=== PATIENT | male | born 1995 | race Caucasian/White ===

== ENCOUNTER 2016-07-25 19:34 | Inpatient (IN) | payer OTHER ==
[2016-07-25 20:44] VITALS: BMI 22.9
--- NOTE | 2016-07-25 20:58 | HP ---
COWS - Scale Resting Pulse: 4= [place] > 121 Sweatin= Chills/Flushing Restless Observation: 3= Extraneous Movement Pupil Size: 0= Normal to Room Light Bone or Joint Aches: 2= Severe Diffuse Aches Runny Nose/ Eye Tearin= Runny Nose/Eyes GI Upset > 30mins: 2= Nausea/Diarrhea Tremor Observation: 2= Slight Tremor Visible Yawning Observation: 0= None Anxiety or Irritability: 2=Irritable/Anxious Goose Flesh Skin: 0=Smooth Skin COWS Score: 18 CIWA Score - CIWA Score Nausea/Vomitin-Mild Nausea/No Vomiting Muscle Tremors: 4-Moderate,w/Arms Extend Anxiety: 4-Mod. Anxious/Guarded Agitation: 4-Moderately Restless Paroxysmal Sweats: 1-Minimal Palms Moist Orientation: 2-Disoriented Date<2 days Tacttile Disturbances: 0-None Auditory Disturbances: 0-None Visual Disturbances: 0-None Headache: 1-Very Mild CIWA-Ar Total Score: 17 Admission ROS S - HPI Chief Complaint: withdrawal sx Allergies/Adverse Reactions: Allergies Allergy/AdvReac Type Severity Reaction Status Date / Time avocado Allergy Severe Difficulty Verified 07/25/16 20:35 Breathing azithromycin [From Zithromax] Allergy Severe Hives Verified 07/25/16 20:35 [email or web address] [From Omnicef] Allergy Severe Hives Verified 07/25/16 20:35 latex Allergy Severe Hives Verified 07/25/16 20:35 peanut Allergy Severe Difficulty Verified 07/25/16 20:35 Breathing Penicillins Allergy Severe Difficulty Verified 07/25/16 20:35 Breathing tree nut Allergy Severe Difficulty Verified 07/25/16 20:35 Breathing banana Allergy Difficulty Verified 07/25/16 20:35 Breathing History of Present Illness: 21 years old male with long history of opium xanax nicotine dependence has asthma and anxiety is admitted to detox Exam Limitations: No Limitations - Ebola screening Have you traveled outside of the country in the last 21 days: No Have you had contact with anyone from an Ebola affected area: No Have you been sick,other than usual withdrawal symptoms: No Do you have a fever: No - Review of Systems Constitutional: Chills, Loss of Appetite, Changes in sleep, Unintentional Wgt. Loss, Unexplained wgt Loss EENT: reports: Nose Congestion Respiratory: reports: SOB with Exertion Cardiac: reports: No Symptoms Reported GI: reports: Nausea, Poor Appetite, Poor Fluid Intake, Indigestion, Abdominal cramping : reports: No Symptoms Reported Musculoskeletal: reports: Back Pain, Joint Pain, Muscle Pain, Neck Pain Integumentary: reports: Change in Color (left inner elbow) Neuro: reports: Tremors Endocrine: reports: No Symptoms Reported Hematology: reports: No Symptoms Reported Psychiatric: reports: Judgement Intact, Anxious, Depressed Other Systems: Reviewed and Negative Patient History - Patient Medical History Hx Anemia: No Hx Asthma: Yes Hx Chronic Obstructive Pulmonary Disease (COPD): No Hx Cancer: No Hx Cardiac Disorders: No Hx Congestive Heart Failure: No Hx Hypertension: No Hx Hypercholesterolemia: No Hx Pacemaker: No HX Cerebrovascular Accident: No Hx Seizures: No Hx Dementia: No Hx Diabetes: No Hx Gastrointestinal Disorders: Yes Hx Liver Disease: No Hx Genitourinary Disorders: No Hx Sexually Transmitted Disorders: No Hx Renal Disease (ESRD): No Hx Thyroid Disease: No Hx Human Immunodeficiency Virus (HIV): No Hx Hepatitis C: No Hx Depression: Yes Hx Suicide Attempt: No Hx Bipolar Disorder: No Hx Schizophrenia: No - Patient Surgical History Past Surgical History: Yes Hx Neurologic Surgery: No Hx Cataract Extraction: No Hx Cardiac Surgery: No Hx Lung Surgery: No Hx Breast Surgery: No Hx Breast Biopsy: No Hx Abdominal Surgery: No Hx Appendectomy: No Hx Cholecystectomy: No Hx Genitourinary Surgery: No Hx Orthopedic Surgery: No Other Surgical History: ear tubes removed Anesthesia Reaction: No - PPD History Previous Implant?: Yes Documented Results: Negative w/o proof Implanted On [facility] Admission?: No PPD to be Administered?: Yes - Smoking Cessation Smoking history: Current every day smoker Have you smoked in the past 12 months: Yes Aproximately how many cigarettes per day: 30 Cigars Per Day: 0 Hx Chewing Tobacco Use: No Initiated information on smoking cessation: Yes 'Breaking Loose' booklet given: 07/25/16 - Substance & Tx. History Hx Alcohol Use: No Hx Substance Use: Yes Substance Use Type: Heroin, Opiates, Tranquilizers Hx Substance Use Treatment: No - Substances Abused Alprazolam (Xanax) Route: Oral Frequency: Daily Amount used: 30 mg Age of first use: 14 Date of Last Use: 07/25/16 Heroin Route: Injection Frequency: Daily Amount used: 40 bag Age of first use: 20 Date of Last Use: 07/25/16 xanax Route: Oral Frequency: Daily Amount used: 15-20 mg Age of first use: 14 Date of Last Use: 07/25/16 Family Disease History - Family Disease History Family Disease History: Heart Disease: Grandparent, Other: Mother (lupus) Admission Physical Exam [facility] - Vital Signs Vital Signs: Vital Signs - 24 hr 07/25/16 20:41 Temperature 98.1 F Pulse Rate 122 H Respiratory 16 Rate Blood Pressure 150/102 - Physical General Appearance: Yes: Appropriately Dressed, Moderate Distress, Thin, Tremorous, Irritable, Sweating, Anxious HEENTM: Yes: Hearing grossly Normal, Normal ENT Inspection, Normocephalic, Normal Voice Respiratory: Yes: Chest Non-Tender, No Respiratory Distress, No Accessory Muscle Use, Wheezing, Expiration Neck: Yes: Supple, Trachea in good position Breast: Yes: Breasts Symetrical Cardiology: Yes: Regular Rhythm, S1, S2, Tachycardia Abdominal: Yes: Non Tender, Soft Genitourinary: Yes: Within Normal Limits Back: Yes: Normal Inspection Musculoskeletal: Yes: full range of Motion, Gait Steady, Back pain, Muscle Pain Extremities: Yes: Normal Range of Motion, Non-Tender, Tremors Neurological: Yes: Alert, Motor Strength 5/5, Normal Response, Depressed Affect Integumentary: Yes: Warm, Track Velazquez Lymphatic: Yes: Within Normal Limits - Diagnostic (1) Opioid dependence with withdrawal Current Visit: Yes Status: Acute (2) Sedative, hypnotic or anxiolytic dependence with withdrawal, uncomplicated Current Visit: Yes Status: Acute (3) Asthma Current Visit: Yes Status: Chronic Qualifiers: Asthma severity: mild persistent Asthma complication type: with status asthmaticus Qualified Code(s): J45.32 - Mild persistent asthma with status asthmaticus (4) Nicotine dependence Current Visit: Yes Status: Acute Qualifiers: Nicotine product type: cigarettes Substance use status: in withdrawal Qualified Code(s): F17.213 - Nicotine dependence, cigarettes, with withdrawal (5) Nasal congestion Current Visit: Yes Status: Chronic (6) Skin abrasion Current Visit: Yes Status: Chronic (7) Weight loss Current Visit: Yes Status: Acute Cleared for Admission [facility] - Detox or Rehab [facility] Level of Care: Medically Managed Detox Regimen/Protocol: Methadone/Valium B[facility] Breath Alcohol Content Breath Alcohol Content: 0 Urine Drug Screen - Results Drug Screen Negative: No Urine Drug Screen Results: OPI-Opiates, AMP-Amphetamines, BZO-Benzodiazepines, OXY-Oxycodone
[2016-07-25] MEDS ORDERED: LOPERAMIDE HCL 2 MG CAPSULE PO PRN (21:08)
[2016-07-25] MEDS ORDERED: diazePAM 5 MG TABLET PO ONE (21:08)
[2016-07-25] MEDS ORDERED: MAGNESIUM CITRATE 300 ML BOTTLE PO PRN (21:08)
[2016-07-25] MEDS ORDERED: diazePAM 5 MG TABLET PO PRN (21:08)
[2016-07-25] MEDS ORDERED: METHADONE HCL 10 MG TABLET (FOR DETOX USE ONLY) PO ONE ×2 (21:08→23:00)
[2016-07-25] MEDS ORDERED: MAGNESIUM HYDROX 2400MG/30ML ORAL SUSPENSION 30 ML CUP PO PRN (21:08)
[2016-07-25] MEDS ORDERED: MAG HYDROX/AL HYDROX/SIMETH 30 ML UNIT-DOSE CUP PO PRN (21:08)
[2016-07-25] MEDS ORDERED: MENTHOL/PHENOL 1 EACH UD MM PRN (21:08)
[2016-07-25] MEDS ORDERED: ACETAMINOPHEN 325 MG TABLET (FP) PO PRN (21:08)
[2016-07-25] MEDS ORDERED: BACITRACIN 0.9 GM PACKET TP ONE (21:11)
[2016-07-25] MEDS: RANITIDINE HCL 150 MG TABLET (FP) PO SCH (22:09)
[2016-07-25] MEDS: cloNIDine HCL 0.1 MG TABLET PO PRN (22:10)
[2016-07-25] MEDS: THIAMINE HCL 100 MG TABLET (FP) PO SCH (22:10)
[2016-07-25] MEDS: CYCLOBENZAPRINE HCL 10 MG TABLET (FP) PO PRN (22:10)
[2016-07-25] MEDS: FLUTICASONE PROP 0.05% 16 GM NASAL SPRAY NS SCH (22:13)
[2016-07-25] MEDS: NICOTINE POLACRILEX 4 MG GUM BC PRN (22:18)
[2016-07-25] MEDS: diazePAM 5 MG TABLET PO SCH (22:19)
[2016-07-26] MEDS: ALBUTEROL SO4 2.5/IPRATROPIUM 0.5 INH SOL 3 ML VIAL.NEB. NEB PRN (00:01)
[2016-07-26] MEDS: P-EPHED 60MG/TRIPROLIDI 2.5MG TABLET PO PRN (00:08)
[2016-07-26] MEDS: diazePAM 5 MG TABLET PO SCH (05:49)
--- NOTE | 2016-07-26 09:46 | EKG ---
Test Reason : Blood Pressure : / mmHG Vent. Rate : 105 BPM Atrial Rate : 105 BPM P-R Int : 134 ms QRS Dur : 094 ms QT Int : 352 ms P-R-T Axes : 075 052 035 degrees QTc Int : 465 ms SINUS TACHYCARDIA NO PREVIOUS ECGS AVAILABLE Confirmed by HECTOR CURRAN MD ([id number]) on 07/26/2016 9:45:48 AM Referred By: Confirmed By:HECTOR CURRAN MD
[2016-07-26] MEDS ORDERED: METHADONE HCL 10 MG TABLET (FOR DETOX USE ONLY) PO SCH (10:00)
[2016-07-26 10:02] LABS: MCH 29.1 pg (25.7-33.7); MCHC 33.4 g/dl (32.0-35.9); MEAN CELL VOLUME 87.1 fl (80-96); MEAN PLT VOLUME 9.8 fl (7.5-11.1); PLATELET COUNT 188 K/MM3 (134-434); RDW 13.6 % (11.9-15.9); WHITE BLOOD COUNT 7.8 K/mm3 (4.0-10.0)
[2016-07-26] MEDS: cloNIDine HCL 0.1 MG TABLET PO PRN ×2 (10:14→22:27)
[2016-07-26] MEDS: CYCLOBENZAPRINE HCL 10 MG TABLET (FP) PO PRN ×2 (10:14→22:27)
[2016-07-26] MEDS: PRENATAL VITAMINS W/ FOLIC ACID TABLET (FP) PO SCH (10:14)
[2016-07-26] MEDS: RANITIDINE HCL 150 MG TABLET (FP) PO SCH ×2 (10:14→22:27)
[2016-07-26] MEDS: FLUTICASONE PROP 0.05% 16 GM NASAL SPRAY NS SCH (10:15)
[2016-07-26] MEDS: NICOTINE 21 MG/24 HOURS TOPICAL PATCH TD SCH (10:15)
--- NOTE | 2016-07-26 10:49 | PN ---
[facility] CIWA - CIWA Score Nausea/Vomitin-No Nausea/No Vomiting Muscle Tremors: 4-Moderate,w/Arms Extend Anxiety: 3 Agitation: 4-Moderately Restless Paroxysmal Sweats: 3 Orientation: 0-Oriented Tacttile Disturbances: 0-None Auditory Disturbances: 0-None Visual Disturbances: 0-None Headache: 1-Very Mild CIWA-Ar Total Score: 15 BHS COWS - Scale Resting Pulse: 0= DC 80 or Below Sweatin=Flushed/Facial Moisture Restless Observation: 1= Difficult to Sit Still Pupil Size: 0= Normal to Room Light Bone or Joint Aches: 2= Severe Diffuse Aches Runny Nose/ Eye Tearin= Runny Nose/Eyes GI Upset > 30mins: 2= Nausea/Diarrhea Tremor Observation of Outstretched Hands: 2= Slight Tremor Visible Yawning Observation: 2= >3x During Session Anxiety or Irritability: 2=Irritable/Anxious Goose Flesh Skin: 0=Smooth Skin COWS Score: 15 S Progress Note (SOAP) Subjective: irritable agitation anxiety sweats interrupted sleep I need gingerale for my upset stomach Objective: 07/26/16 10:53 Vital Signs Temperature 96.8 F L 07/26/16 07:27 Pulse Rate 67 07/26/16 07:27 Respiratory Rate 16 07/26/16 07:27 Blood Pressure 96/55 07/26/16 07:27 O2 Sat by Pulse Oximetry (%) Laboratory Tests 07/26/16 07/26/16 07:00 07:00 WBC 7.8 RBC 5.55 Hgb 16.1 Hct 48.3 MCV 87.1 MCHC 33.4 RDW 13.6 Plt Count 188 MPV 9.8 Sodium 140 Potassium 3.7 Chloride 104 labs pending awake/alert ambulating no acute distress Assessment: 07/26/16 10:53 withdrawal sx Plan: continue detox increase fluids labs pending dietary consultation ordered gingerale with meals
[2016-07-26 10:54] LABS: ALBUMIN 4.4 g/dl (3.4-5.0); ALK PHOS 54 U/L (45-117); ANION GAP 11 (8-16); BILIRUBIN,TOTAL 0.6 mg/dL (0.2-1.0); CO2 25 mmol/L (21-32); CREATININE 1.4 mg/dL (0.7-1.3); GLUCOSE,RANDOM 88 mg/dL (74-106); SGOT/AST 12 U/L (15-37); SGPT/ALT 24 U/L (12-78); TOT PROT 7.1 g/dl (6.4-8.2)
[2016-07-26] MEDS ORDERED: ALBUTEROL SO4 6.7 GM HFA INHALER IH SCH (12:30)
[2016-07-26 12:43] LABS: HIV 1 & 2 AB NEGATIVE; HIV 1 AGp24 NEGATIVE
--- NOTE | 2016-07-26 12:50 | CONSULT ---
[facility] Psychiatric Consult - Data Date of interview: 07/26/16 Admission source: [facility] Identifying data: First admission to [facility] for this 21 y/o male seeking detox treatment for xanax and heroin dependence.Patient is single without children,domiciled and currently employed. Substance Abuse History: - Smoking Cessation. Smoking history: Current every day smoker. Have you smoked in the past 12 months: Yes. Aproximately how many cigarettes per day: 30. Cigars Per Day: 0. Hx Chewing Tobacco Use: No. Initiated information on smoking cessation: Yes. 'Breaking Loose' booklet given : 07/25/16. - Substance & Tx. History. Hx Alcohol Use: No. Hx Substance Use: Yes. Substance Use Type: Heroin, Opiates, Tranquilizers. Hx Substance Use Treatment: No. - Substances Abused. Alprazolam (Xanax). Route: Oral. Frequency: Daily. Amount used: 30 mg. Age of first use: 14. Date of Last Use : 07/25/16. Heroin. Route: Injection. Frequency: Daily. Amount used: 40 bag. Age of first use: 20. Date of Last Use: 07/25/16. xanax. Route: Oral. Frequency: Daily. Amount used: 15-20 mg. Age of first use: 14. Date of Last Use: 07/25/16. Confirmed by patient. Medical History: Patient endorses good general health.History of bronchial asthma. Psychiatric History: Patient denies. Physical/Sexual Abuse/Trauma History: Patient denies. Additional Comment: Urine Drug Screen Results: OPI-Opiates, AMP-Amphetamines, BZO-Benzodiazepines, OXY-Oxycodone.Noted. Mental Status Exam - Mental Status Exam Alert and Oriented to: Time, Place, Person Cognitive Function: Good Patient Appearance: Well Groomed Mood: Hopeful, Euthymic Affect: Appropriate, Normal Range Patient Behavior: Appropriate, Cooperative Speech Pattern: Clear Voice Loudness: Normal Thought Process: Intact, Goal Oriented Thought Disorder: Not Present Hallucinations: Denies Suicidal Ideation: Denies Homicidal Ideation: Denies Insight/Judgement: Poor Sleep: Well Appetite: Good Muscle strength/Tone: Normal Gait/Station: Normal Psychiatric Findings - Problem List ([place] 1, 2,3) (1) Opioid dependence with withdrawal Current Visit: Yes Status: Acute (2) Sedative, hypnotic or anxiolytic dependence with withdrawal, uncomplicated Current Visit: Yes Status: Acute (3) Amphetamine abuse Current Visit: Yes Status: Acute (4) Nicotine dependence Current Visit: Yes Status: Acute Qualifiers: Nicotine product type: cigarettes Substance use status: in withdrawal Qualified Code(s): F17.213 - Nicotine dependence, cigarettes, with withdrawal (5) Asthma Current Visit: Yes Status: Chronic Qualifiers: Asthma severity: mild persistent Asthma complication type: with status asthmaticus Qualified Code(s): J45.32 - Mild persistent asthma with status asthmaticus - Initial Treatment Plan Initial Treatment Plan: Psychoeducation.Detoxification.Observation.
[2016-07-26] MEDS: chlordiazePOXIDE HCL 25 MG CAPSULE PO SCH ×2 (16:39→22:27)
[2016-07-26 16:58] LABS: URINE APPEARANCE CLEAR; URINE BILIRUBIN NEGATIVE (NEGATIVE); URINE BLOOD NEGATIVE (NEGATIVE); URINE COLOR YELLOW; URINE GLUCOSE (UA) NEGATIVE (NEGATIVE); URINE KETONE NEGATIVE (NEGATIVE); URINE LEUK ESTERASE NEGATIVE (NEGATIVE); URINE NITRITE NEGATIVE (NEGATIVE); URINE PROTEIN NEGATIVE (NEGATIVE); URINE UROBILINOGEN NEGATIVE E.U./dl (0.2-1.0)
[2016-07-26] MEDS: guaiFENesin/D-METHORPHAN HB 10 ML UNIT-DOSE CUPS PO PRN (17:01)
[2016-07-26] MEDS: ALBUTEROL SO4 6.7 GM HFA INHALER IH PRN (17:02)
[2016-07-26] MEDS ORDERED: chlordiazePOXIDE HCL 25 MG CAPSULE PO SCH (18:00)
[2016-07-26] MEDS: THIAMINE HCL 100 MG TABLET (FP) PO SCH (22:27)
[2016-07-26] MEDS: diphenhydrAMINE HCL 50 MG CAPSULE PO PRN (23:35)
[2016-07-27] MEDS: chlordiazePOXIDE HCL 25 MG CAPSULE PO SCH ×4 (06:25→22:05)
[2016-07-27] MEDS: FLUTICASONE PROP 0.05% 16 GM NASAL SPRAY NS SCH ×2 (06:27→10:09)
[2016-07-27] MEDS: ALBUTEROL SO4 6.7 GM HFA INHALER IH PRN ×2 (06:28→10:10)
[2016-07-27] MEDS ORDERED: diazePAM 5 MG TABLET PO SCH (10:00)
[2016-07-27] MEDS: RANITIDINE HCL 150 MG TABLET (FP) PO SCH ×2 (10:09→22:05)
[2016-07-27] MEDS: METHADONE HCL 5 MG TABLET (FOR DETOX USE ONLY) PO SCH (10:09)
[2016-07-27] MEDS: PRENATAL VITAMINS W/ FOLIC ACID TABLET (FP) PO SCH (10:09)
[2016-07-27] MEDS: NICOTINE POLACRILEX 4 MG GUM BC PRN (10:13)
[2016-07-27] MEDS: NICOTINE 21 MG/24 HOURS TOPICAL PATCH TD SCH (11:12)
--- NOTE | 2016-07-27 13:46 | PN ---
[facility] CIWA - CIWA Score Nausea/Vomitin-Mild Nausea/No Vomiting Muscle Tremors: 3 Anxiety: 4-Mod. Anxious/Guarded Agitation: 4-Moderately Restless Paroxysmal Sweats: 3 Orientation: 0-Oriented Tacttile Disturbances: 0-None Auditory Disturbances: 0-None Visual Disturbances: 0-None Headache: 0-None Present CIWA-Ar Total Score: 15 BHS COWS - Scale Resting Pulse: 1= SD 81-100 Sweatin=Flushed/Facial Moisture Restless Observation: 1= Difficult to Sit Still Pupil Size: 0= Normal to Room Light Bone or Joint Aches: 1= Mild Discomfort Runny Nose/ Eye Tearin= Runny Nose/Eyes GI Upset > 30mins: 2= Nausea/Diarrhea Tremor Observation of Outstretched Hands: 2= Slight Tremor Visible Yawning Observation: 1= 1-2x During Session Anxiety or Irritability: 2=Irritable/Anxious Goose Flesh Skin: 0=Smooth Skin COWS Score: 14 S Progress Note (SOAP) Subjective: Anxiety,tremors,sweating,interrupted sleep,restless,muscle aches. Objective: 07/27/16 13:45 Last Vital Signs Temp Pulse Resp BP Pulse Ox 96.1 F L 94 H 18 128/63 07/27/16 10:00 07/27/16 10:00 07/27/16 10:00 07/27/16 10:00 Laboratory Last Values WBC 7.8 K/mm3 (4.0-10.0) 07/26/16 07:00 RBC 5.55 M/mm3 (4.00-5.60) 07/26/16 07:00 Hgb 16.1 GM/dL (11.7-16.9) 07/26/16 07:00 Hct 48.3 % (35.4-49) 07/26/16 07:00 MCV 87.1 fl (80-96) 07/26/16 07:00 MCHC 33.4 g/dl (32.0-35.9) 07/26/16 07:00 RDW 13.6 % (11.9-15.9) 07/26/16 07:00 Plt Count 188 K/MM3 (134-434) 07/26/16 07:00 MPV 9.8 fl (7.5-11.1) 07/26/16 07:00 Sodium 140 mmol/L (136-145) 07/26/16 07:00 Potassium 3.7 mmol/L (3.5-5.1) 07/26/16 07:00 Chloride 104 mmol/L (98-107) 07/26/16 07:00 Carbon Dioxide 25 mmol/L (21-32) 07/26/16 07:00 Anion Gap 11 (8-16) 07/26/16 07:00 BUN 18 mg/dL (7-18) 07/26/16 07:00 Creatinine 1.4 mg/dL (0.7-1.3) H 07/26/16 07:00 Creat Clearance w eGFR > 60 (>60) 07/26/16 07:00 Random Glucose 88 mg/dL (74-106) 07/26/16 07:00 Calcium 9.0 mg/dL (8.5-10.1) 07/26/16 07:00 Total Bilirubin 0.6 mg/dL (0.2-1.0) 07/26/16 07:00 AST 12 U/L (15-37) L 07/26/16 07:00 ALT 24 U/L (12-78) 07/26/16 07:00 Alkaline Phosphatase 54 U/L (45-117) 07/26/16 07:00 Total Protein 7.1 g/dl (6.4-8.2) 07/26/16 07:00 Albumin 4.4 g/dl (3.4-5.0) 07/26/16 07:00 Urine Color Yellow 07/26/16 11:45 Urine Appearance Clear 07/26/16 11:45 Urine pH 5.0 (5.0-8.0) 07/26/16 11:45 Ur Specific [place] >= 1.030 (1.005-1.025) H 07/26/16 11:45 Urine Protein Negative (NEGATIVE) 07/26/16 11:45 Urine Glucose (UA) Negative (NEGATIVE) 07/26/16 11:45 Urine Ketones Negative (NEGATIVE) 07/26/16 11:45 Urine Blood Negative (NEGATIVE) 07/26/16 11:45 Urine Nitrite Negative (NEGATIVE) 07/26/16 11:45 Urine Bilirubin Negative (NEGATIVE) 07/26/16 11:45 Urine Urobilinogen Negative E.U./dl (0.2-1.0) 07/26/16 11:45 Ur Leukocyte Esterase Negative (NEGATIVE) 07/26/16 11:45 RPR Titer Nonreactive (NONREACTIVE) 07/26/16 07:00 Hepatitis C Antibody <0.1 s/co ratio (0.0-0.9) 07/25/16 07:00 HIV 1&2 Antibody Screen Negative 07/26/16 07:00 HIV P24 Antigen Negative 07/26/16 07:00 labs noted Assessment: 07/27/16 13:45 Withdrawal sx. Plan: Continue detox
[2016-07-27] MEDS: chlordiazePOXIDE HCL 25 MG CAPSULE PO PRN (14:02)
[2016-07-27] MEDS: CYCLOBENZAPRINE HCL 10 MG TABLET (FP) PO PRN ×2 (14:02→22:05)
[2016-07-27] MEDS: ALBUTEROL SO4 2.5/IPRATROPIUM 0.5 INH SOL 3 ML VIAL.NEB. NEB PRN (15:41)
[2016-07-27] MEDS: P-EPHED 60MG/TRIPROLIDI 2.5MG TABLET PO PRN ×2 (15:43→22:06)
[2016-07-27] MEDS: diphenhydrAMINE HCL 50 MG CAPSULE PO PRN (22:03)
[2016-07-27] MEDS: cloNIDine HCL 0.1 MG TABLET PO PRN (22:04)
[2016-07-27] MEDS: THIAMINE HCL 100 MG TABLET (FP) PO SCH (22:05)
[2016-07-28] MEDS: chlordiazePOXIDE HCL 25 MG CAPSULE PO SCH ×2 (05:56→10:02)
[2016-07-28] MEDS: FLUTICASONE PROP 0.05% 16 GM NASAL SPRAY NS SCH ×2 (06:30→11:18)
[2016-07-28] MEDS: RANITIDINE HCL 150 MG TABLET (FP) PO SCH ×2 (10:02→22:04)
[2016-07-28] MEDS: METHADONE HCL 5 MG TABLET (FOR DETOX USE ONLY) PO SCH (10:02)
[2016-07-28] MEDS: PRENATAL VITAMINS W/ FOLIC ACID TABLET (FP) PO SCH (10:02)
[2016-07-28] MEDS: NICOTINE 21 MG/24 HOURS TOPICAL PATCH TD SCH (10:02)
[2016-07-28] MEDS: NICOTINE POLACRILEX 4 MG GUM BC PRN ×2 (10:03→12:52)
[2016-07-28] MEDS: chlordiazePOXIDE HCL 25 MG CAPSULE PO PRN (12:52)
--- NOTE | 2016-07-28 13:32 | PN ---
BHS Progress Note (SOAP) Subjective: Sweating,interrupted sleep,restless. Objective: 07/28/16 13:30 Vital Signs - 8 hr 07/28/16 07/28/16 06:42 10:00 Temperature 97.2 F L 96.8 F L Pulse Rate 81 64 Respiratory 16 18 Rate Blood Pressure 96/54 125/63 Laboratory Tests 07/25/16 07/26/16 07/26/16 07:00 07:00 07:00 WBC 7.8 RBC 5.55 Hgb 16.1 Hct 48.3 MCV 87.1 MCHC 33.4 RDW 13.6 Plt Count 188 MPV 9.8 Sodium Potassium Chloride Carbon Dioxide Anion Gap BUN Creatinine Creat Clearance w eGFR Random Glucose Calcium Total Bilirubin AST ALT Alkaline Phosphatase Total Protein Albumin Urine Color Urine Appearance Urine pH Ur Specific [place] Urine Protein Urine Glucose (UA) Urine Ketones Urine Blood Urine Nitrite Urine Bilirubin Urine Urobilinogen Ur Leukocyte Esterase RPR Titer Hepatitis C Antibody <0.1 HIV 1&2 Antibody Screen Negative HIV P24 Antigen Negative 07/26/16 07/26/16 07/26/16 07:00 07:00 11:45 WBC RBC Hgb Hct MCV MCHC RDW Plt Count MPV Sodium 140 Potassium 3.7 Chloride 104 Carbon Dioxide 25 Anion Gap 11 BUN 18 Creatinine 1.4 H Creat Clearance w eGFR > 60 Random Glucose 88 Calcium 9.0 Total Bilirubin 0.6 AST 12 L ALT 24 Alkaline Phosphatase 54 Total Protein 7.1 Albumin 4.4 Urine Color Yellow Urine Appearance Clear Urine pH 5.0 Ur Specific [place] >= 1.030 H Urine Protein Negative Urine Glucose (UA) Negative Urine Ketones Negative Urine Blood Negative Urine Nitrite Negative Urine Bilirubin Negative Urine Urobilinogen Negative Ur Leukocyte Esterase Negative RPR Titer Nonreactive Hepatitis C Antibody HIV 1&2 Antibody Screen HIV P24 Antigen labs noted Assessment: 07/28/16 13:32 Withdrawal sx. Plan: Continue detox
[2016-07-28] MEDS: ALBUTEROL SO4 2.5/IPRATROPIUM 0.5 INH SOL 3 ML VIAL.NEB. NEB PRN (16:27)
[2016-07-28] MEDS: cloNIDine HCL 0.1 MG TABLET PO PRN (17:20)
[2016-07-28] MEDS: chlordiazePOXIDE 5 MG CAPSULE PO SCH ×2 (17:20→22:03)
[2016-07-28] MEDS: P-EPHED 60MG/TRIPROLIDI 2.5MG TABLET PO PRN (22:02)
[2016-07-28] MEDS: CYCLOBENZAPRINE HCL 10 MG TABLET (FP) PO PRN (22:03)
[2016-07-28] MEDS: diphenhydrAMINE HCL 50 MG CAPSULE PO PRN (22:03)
[2016-07-28] MEDS: THIAMINE HCL 100 MG TABLET (FP) PO SCH (22:04)
[2016-07-29] MEDS: chlordiazePOXIDE 5 MG CAPSULE PO SCH ×2 (06:54→10:27)
[2016-07-29] MEDS: guaiFENesin/D-METHORPHAN HB 10 ML UNIT-DOSE CUPS PO PRN (06:57)
[2016-07-29] MEDS ORDERED: diazePAM 5 MG TABLET PO SCH (10:00)
[2016-07-29] MEDS ORDERED: METHADONE HCL 10 MG TABLET (FOR DETOX USE ONLY) PO SCH (10:00)
[2016-07-29] MEDS: CYCLOBENZAPRINE HCL 10 MG TABLET (FP) PO PRN ×2 (10:27→22:07)
[2016-07-29] MEDS: FLUTICASONE PROP 0.05% 16 GM NASAL SPRAY NS SCH (10:27)
[2016-07-29] MEDS: RANITIDINE HCL 150 MG TABLET (FP) PO SCH ×2 (10:27→22:08)
[2016-07-29] MEDS: PRENATAL VITAMINS W/ FOLIC ACID TABLET (FP) PO SCH (10:27)
[2016-07-29] MEDS: NICOTINE 21 MG/24 HOURS TOPICAL PATCH TD SCH (10:28)
--- NOTE | 2016-07-29 10:37 | PN ---
BHS Progress Note (SOAP) Subjective: interrupted sleep, sweats, shakes , lbp Objective: 07/29/16 10:35 Vital Signs Temperature 97.7 F 07/29/16 06:00 Pulse Rate 66 07/29/16 06:00 Respiratory Rate 18 07/29/16 06:00 Blood Pressure 123/69 07/29/16 06:00 O2 Sat by Pulse Oximetry (%) Laboratory Tests 07/25/16 07/26/16 07/26/16 07:00 07:00 07:00 WBC 7.8 RBC 5.55 Hgb 16.1 Hct 48.3 MCV 87.1 MCHC 33.4 RDW 13.6 Plt Count 188 MPV 9.8 Sodium Potassium Chloride Carbon Dioxide Anion Gap BUN Creatinine Creat Clearance w eGFR Random Glucose Calcium Total Bilirubin AST ALT Alkaline Phosphatase Total Protein Albumin Urine Color Urine Appearance Urine pH Ur Specific [place] Urine Protein Urine Glucose (UA) Urine Ketones Urine Blood Urine Nitrite Urine Bilirubin Urine Urobilinogen Ur Leukocyte Esterase RPR Titer Hepatitis C Antibody <0.1 HIV 1&2 Antibody Screen Negative HIV P24 Antigen Negative 07/26/16 07/26/16 07/26/16 07:00 07:00 11:45 WBC RBC Hgb Hct MCV MCHC RDW Plt Count MPV Sodium 140 Potassium 3.7 Chloride 104 Carbon Dioxide 25 Anion Gap 11 BUN 18 Creatinine 1.4 H Creat Clearance w eGFR > 60 Random Glucose 88 Calcium 9.0 Total Bilirubin 0.6 AST 12 L ALT 24 Alkaline Phosphatase 54 Total Protein 7.1 Albumin 4.4 Urine Color Yellow Urine Appearance Clear Urine pH 5.0 Ur Specific [place] >= 1.030 H Urine Protein Negative Urine Glucose (UA) Negative Urine Ketones Negative Urine Blood Negative Urine Nitrite Negative Urine Bilirubin Negative Urine Urobilinogen Negative Ur Leukocyte Esterase Negative RPR Titer Nonreactive Hepatitis C Antibody HIV 1&2 Antibody Screen HIV P24 Antigen pt aox3 in nad ambulating Assessment: 07/29/16 10:37 withdrawal sx's Plan: cont. detox icrease fluids motrin prn d/c in am
[2016-07-29] MEDS: chlordiazePOXIDE HCL 25 MG CAPSULE PO PRN (12:45)
[2016-07-29] MEDS: ALBUTEROL SO4 6.7 GM HFA INHALER IH PRN ×2 (12:50→22:08)
[2016-07-29] MEDS: ALBUTEROL SO4 2.5/IPRATROPIUM 0.5 INH SOL 3 ML VIAL.NEB. NEB PRN (16:56)
[2016-07-29] MEDS: chlordiazePOXIDE HCL 10 MG CAPSULE PO SCH ×2 (17:48→22:08)
[2016-07-29] MEDS: cloNIDine HCL 0.1 MG TABLET PO PRN (22:07)
[2016-07-29] MEDS: THIAMINE HCL 100 MG TABLET (FP) PO SCH (22:08)
[2016-07-29] MEDS: diphenhydrAMINE HCL 50 MG CAPSULE PO PRN (22:09)
[2016-07-30] MEDS: chlordiazePOXIDE HCL 10 MG CAPSULE PO SCH (05:41)
[2016-07-30] MEDS: guaiFENesin/D-METHORPHAN HB 10 ML UNIT-DOSE CUPS PO PRN (05:42)
[2016-07-30] MEDS: ALBUTEROL SO4 6.7 GM HFA INHALER IH PRN (05:44)
[2016-07-30] MEDS ORDERED: METHADONE HCL 5 MG TABLET (FOR DETOX USE ONLY) PO SCH (06:00)
[2016-07-30 06:27] VITALS: BP 116/66; PULSE 72; TEMP 97.5
--- NOTE | 2016-07-30 08:38 | DS ---
[facility] Detox Discharge Summary Admission Date: 07/25/16 Discharge Date: 07/30/16 - History Present History: Opioid Dependence, Sedative Dependence Additional Comments: amphetamine abuse - Physical Exam Results Vital Signs: Vital Signs Temperature 97.5 F L 07/30/16 06:26 Pulse Rate 72 07/30/16 06:26 Respiratory Rate 16 07/30/16 06:26 Blood Pressure 116/66 07/30/16 06:26 O2 Sat by Pulse Oximetry (%) - Treatment Hospital Course: Detox Protocol Followed, Detoxed Safely, Responded well, Discharged Condition Good - Medication Discharge Medications: Ambulatory Orders Albuterol Sulfate Inhaler - [Ventolin HFA Inhaler -] 2 puff IH PRN 07/25/16 Melatonin 10 mg PO HS 07/25/16 Salmeterol/Fluticasone [Advair 100Mcg/50Mcg -] 1 inh PO BID 07/25/16 - Diagnosis (1) Amphetamine abuse Current Visit: Yes Status: Chronic (2) Nicotine dependence Current Visit: Yes Status: Chronic Qualifiers: Nicotine product type: cigarettes Substance use status: in withdrawal Qualified Code(s): F17.213 - Nicotine dependence, cigarettes, with withdrawal (3) Opioid dependence with withdrawal Current Visit: Yes Status: Chronic (4) Sedative, hypnotic or anxiolytic dependence with withdrawal, uncomplicated Current Visit: Yes Status: Chronic (5) Weight loss Current Visit: Yes Status: Acute (6) Asthma Current Visit: Yes Status: Chronic Qualifiers: Asthma severity: mild persistent Asthma complication type: with status asthmaticus Qualified Code(s): J45.32 - Mild persistent asthma with status asthmaticus - AMA Did Patient Leave Against Medical Advice: No
== END 2016-07-30 08:59 | disposition home or self-care (01) | DRG 897 ==
LOC: YASAS 19:34 → Y6N 20:54
PROVIDERS: ADMIT Internal Medicine; ATTEND Internal Medicine
PROC: HZ2ZZZZ Detoxification Services for Substance Abuse Treatment (ICD-10-PCS; principal; 2016-07-25)
DX: F11.23 Opioid dependence with withdrawal (principal); J45.32 Mild persistent asthma with status asthmaticus; F13.230 Sedative, hypnotic or anxiolytic dependence with withdrawal, uncomplicated; F15.10 Other stimulant abuse, uncomplicated; F17.213 Nicotine dependence, cigarettes, with withdrawal; R00.0 Tachycardia, unspecified; R09.81 Nasal congestion; Z87.898 Personal history of other specified conditions
CPT/HCPCS: 36415; 80053; 81003; 85027; 86593; 86803; 87389; 93005; 93010; 94640